=== PATIENT | male | born 1945 | race Caucasian/White ===

== ENCOUNTER 2018-10-19 07:21 | Day surgery (SDC) | payer MEDICARE, OTHER ==
[~2018-10-19 07:21] MED LIST: KETOROLAC TROMETHAMINE 0.45% 4 DROP/0.4 ML DROPERETTE OD PRN
[2018-10-19] MEDS: TETRACAINE HCL 0.5% OPH SOLN 0.6 ML DROPERETTE OD PRN ×4 (08:04→08:46)
[2018-10-19] MEDS: TROPICAMIDE 1% OPH SOLN 3 ML OD PRN ×3 (08:05→08:30)
[2018-10-19] MEDS: CYCLOPENTOLATE 0.2%/PHENYLEPHRINE 1% OPH SOLN 2 ML OD PRN ×3 (08:05→08:30)
[2018-10-19] MEDS: BESIFLOXACIN HCL 0.6% OPH SUSP 5 ML BOTTLE OD PRN ×4 (08:05→09:12)
[2018-10-19] MEDS ORDERED: MIDAZOLAM 2 MG/2 ML INJ ONE (08:56)
[2018-10-19] MEDS ORDERED: FENTANYL CITRATE INJ/PF 100 MCG/2 ML AMPUL ONE (08:56)
[2018-10-19] MEDS: LIDOCAINE 1% INJ-PF (10 MG/ML) 30 ML SDV ONE ×2 (09:00)
[2018-10-19] MEDS: EPINEPHRINE INJ/PF 1 MG/1 ML AMPULE ONE ×2 (09:00)
[2018-10-19] MEDS: CHONDR SU A NA/HYALUR INTRAOC KIT (SURGICARE) ONE ×2 (09:00)
[2018-10-19] MEDS: TOBRAMYCIN SULFATE/DEXAMETH OPH OINTMENT 3.5 GM ONE ×2 (09:12)
== END 2018-10-19 09:56 | disposition home or self-care (01) ==
LOC: SC 07:21
PROVIDERS: ATTEND Ophthalmology
DX: H25.11 Age-related nuclear cataract, right eye (principal); H40.1111 Primary open-angle glaucoma, right eye, mild stage; I10 Essential (primary) hypertension; R01.1 Cardiac murmur, unspecified; E11.9 Type 2 diabetes mellitus without complications; Z79.82 Long term (current) use of aspirin; Z79.899 Other long term (current) drug therapy; Z79.84 Long term (current) use of oral hypoglycemic drugs; Z85.828 Personal history of other malignant neoplasm of skin
CPT/HCPCS: 0191T; 66984; 140; 82962; C1783; J0171; J2250; J3010; J3490; V2632

== ENCOUNTER 2018-11-02 06:39 | Day surgery (SDC) | payer MEDICARE, OTHER ==
[~2018-11-02 06:39] MED LIST changes: +BUPIVACAINE HCL 0.75% INJ/PF (7.5 MG/1 ML) 10 ML SDV OS PRN; +DORZOLAMIDE HCL 2%/TIMOLOL MALEAT 0.5% OPH SOLN 10 ML OS PRN; -KETOROLAC TROMETHAMINE 0.45% 4 DROP/0.4 ML DROPERETTE OD PRN; +KETOROLAC TROMETHAMINE 0.45% 4 DROP/0.4 ML DROPERETTE OS PRN; +LIDOCAINE 4% INJ/PF (40 MG/ML) 5 ML AMPUL OS PRN
[2018-11-02] MEDS: CYCLOPENTOLATE 0.2%/PHENYLEPHRINE 1% OPH SOLN 2 ML OS PRN ×3 (07:18→07:38)
[2018-11-02] MEDS: TROPICAMIDE 1% OPH SOLN 3 ML OS PRN ×3 (07:18→07:38)
[2018-11-02] MEDS: BESIFLOXACIN HCL 0.6% OPH SUSP 5 ML BOTTLE OS PRN ×3 (07:19→08:17)
[2018-11-02] MEDS ORDERED: TOBRAMYCIN SULFATE/DEXAMETH OPH OINTMENT 3.5 GM ONE (07:19)
[2018-11-02] MEDS ORDERED: EPINEPHRINE INJ/PF 1 MG/1 ML AMPULE ONE (07:19)
[2018-11-02] MEDS ORDERED: LIDOCAINE 1% INJ-PF (10 MG/ML) 30 ML SDV ONE (07:19)
[2018-11-02] MEDS ORDERED: CHONDR SU A NA/HYALUR INTRAOC KIT (SURGICARE) ONE (07:19)
[2018-11-02] MEDS: TETRACAINE HCL 0.5% OPH SOLN 0.6 ML DROPERETTE OS PRN ×3 (07:20→07:52)
[2018-11-02] MEDS ORDERED: MIDAZOLAM 2 MG/2 ML INJ ONE (07:35)
== END 2018-11-02 08:50 | disposition home or self-care (01) ==
LOC: SC 06:39
PROVIDERS: ATTEND Ophthalmology
DX: H25.12 Age-related nuclear cataract, left eye (principal); H40.1121 Primary open-angle glaucoma, left eye, mild stage; E11.9 Type 2 diabetes mellitus without complications; I10 Essential (primary) hypertension; R01.1 Cardiac murmur, unspecified; Z79.899 Other long term (current) drug therapy; Z79.82 Long term (current) use of aspirin; Z85.828 Personal history of other malignant neoplasm of skin
CPT/HCPCS: 0191T; 66984; 142; 82962; C1783; J0171; J2250; J3490; V2632